=== PATIENT | male | born 1940 | race Caucasian/White ===

== ENCOUNTER → 2023-10-16 08:11 | Outpatient (REF) | payer OTHER, SELFPAY | LOC: RCS 08:11 | PROVIDERS: ATTENDING PHYSICIAN Internal Medicine Interventional Cardiology; FAMILY PHYSICIAN Family Medicine | DX: I25.10 Atherosclerotic heart disease of native coronary artery without angina pectoris (principal); I10 Essential (primary) hypertension; I44.1 Atrioventricular block, second degree; I25.2 Old myocardial infarction | CPT/HCPCS: 93306 ==

== ENCOUNTER 2024-05-19 09:07 | Day surgery (SDC) | payer OTHER, SELFPAY ==
[2024-05-19] VITALS (7 sets, daily range): BP systolic 126–176; BP diastolic 69–81; BMI 22.7
[2024-05-19] MEDS: NSS 500 IV (09:43)
[2024-05-19 09:46] LABS: Glucose - Point of Care 125 mg/dl (70-99)
--- NOTE | 2024-05-19 13:23 | ITS.CL.PACE ---
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
Pacemaker Implant
Procedure Report:
PACEMAKER GENERATOR CHANGE
Date of Procedure: 05/19/24
Primary Care Provider: Dr Jeremias Vasquez
Primary home demonstration agent: Dr Noman Lomax
PROCEDURES:
1. Removal of dual chamber PPM generator at [facility]
2. Implant of new dual chamber PPM generator
INDICATION FOR PROCEDURE:
1. PPM generator at [facility]
2. 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
The patient was prepped and draped in sterile fashion. Lidocaine with epi was used for local anesthesia. An incision was made along the previous incision and the device and leads were carefully dissected from the pocket. Hemostasis was obtained
with electrocautery. The leads were from the device header and tested using an external analyzer. The pocket was liberally irrigated with antibiotic solution. Once testing (see below) showed adequate and stable function, the leads were
connected to the generator header and the leads and generator were placed within the pocket. The pocket was closed in the typical fashion.
EXPLANTED PPM GENERATOR:
Medtronic
IMPLANTED PPM GENERATOR:
Medtronic [id number], SN [id number] G
RETAINED LEADS:
Existing RA lead: Medtronic [id number] implanted February 28, 2015
Existing RV lead: Medtronic [id number] implanted February 28, 2015
DEVICE TESTING:
Sensing: RA 2 mV, RV no escape rhythm
Capture: RA 0.5 V @ 0.4ms, RV 1 V @ 0.4ms
Ohms: RA 494, RV 456
FINAL PROGRAMMING
Savage Pacing: DDDR 60 - 130 ppm
COMPLICATIONS:
None
CONCLUSIONS:
1. Successful explant of dual chamber permanent pacemaker
2. Successful implant of dual chamber permanent pacemaker
RECOMMENDATIONS:
1. In-Office wound check in 7-10 days.
Copy to:
Dr Jeremias Vasquez
Dr Noman Lomax
== END 2024-05-19 14:37 | disposition home or self-care (01) ==
LOC: CATH 09:07
PROVIDERS: ATTENDING PHYSICIAN Internal Medicine Cardiovascular Disease; FAMILY PHYSICIAN Family Medicine; OTHER PHYSICIAN Internal Medicine Interventional Cardiology
DX: Z45.010 Encounter for checking and testing of cardiac pacemaker pulse generator [battery] (principal); I44.2 Atrioventricular block, complete; R00.1 Bradycardia, unspecified
CPT/HCPCS: 33228; 82962; C1785